=== PATIENT | male | born 1960 | race Caucasian/White ===

== ENCOUNTER 2021-08-02 19:26 | Emergency (ER) | payer MEDICARE, OTHER ==
[~2021-08-02] VITALS: Ht 170.2 cm; Wt 77.1 kg
[2021-08-02] MEDS ORDERED: CALCIUM CHLOR(10%) 100MG/ML 10ML SYRINGE IV ONE (19:27)
[2021-08-02] MEDS ORDERED: EPINEPHrine HCL 1 MG/10 ML SYRG IV ONE (19:27)
[2021-08-02 19:30] VITALS: BP 0/0
[2021-08-02] MEDS ORDERED: NOREPINEPHRINE 8 MG/250ML KIT 250 ML IV ONE (19:42)
[2021-08-02] MEDS ORDERED: EPINEPHrine HCL 1 MG/10 ML SYRG ONE (19:46)
== END 2021-08-03 04:34 ==
LOC: ER 19:26 → EDBD 19:26 → ER 08-03 04:34
DX: I46.9 Cardiac arrest, cause unspecified (principal); I21.3 ST elevation (STEMI) myocardial infarction of unspecified site; R06.89 Other abnormalities of breathing; J44.9 Chronic obstructive pulmonary disease, unspecified
CPT/HCPCS: 31500; 92950; 93005; 99291; J0171